=== PATIENT | female | born 1990 | race Caucasian/White ===

== ENCOUNTER → 2017-02-04 17:23 | Outpatient (CLI) | payer MEDICAID ==
[2015-12-02 14:46] VITALS: BMI 31.0
[~2017-02-04 17:23] MED LIST: FERROUS SULFAT325 MG PO; K-DUR20 MEQ PO; PERCOCET 5-3251 TAB PO; PRENATAL COMPLE1 TAB PO
[2017-02-04 19:07] LABS: APPEARANCE CLEAR (CLEAR); BILIRUBIN NEGATIVE (NEGATIVE); COLOR YELLOW (YELLOW); GLUCOSE NEGATIVE (NEGATIVE); KETONE NEGATIVE (NEGATIVE); NITRITE NEGATIVE (NEGATIVE); PROTEIN NEGATIVE (NEGATIVE); SPECIFIC GRAVITY 1.005 (1.005-1.020); UROBILINOGEN NORMAL (NORMAL)
[2017-02-04 19:08] LABS: BACTERIA MODERATE /hpf (NONE SEEN); EPITHELIAL CELLS 0-5 /hpf (0-5); LEUKOCYTE ESTERASE TRACE (NEGATIVE); RED CELLS - URINE NONE SEEN /hpf (0-5); WHITE CELLS - URINE 0-5 /hpf (0-5)
== END | disposition home or self-care (01) ==
LOC: D.LDO 17:23
PROVIDERS: Obstetrics & Gynecology
DX: O36.8130 Decreased fetal movements, third trimester, not applicable or unspecified (principal); Z3A.37 37 weeks gestation of pregnancy

== ENCOUNTER 2017-02-20 04:30 | Inpatient (IN) | payer MEDICAID ==
[2017-02-19 15:40] LABS: BASOPHILS 0 % (0-2); EOSINOPHILS 0.5 % (0-7); HEMATOCRIT 36.7 % (36.0-48.0); HEMOGLOBIN 12.3 g/dL (12-16); IMMATURE GRANULOCYTES 0.4 % (0-5); LYMPHOCYTES 16.9 % (15-50); MCH 29.1 pg (26.0-34.0); MCHC 33.5 g/dL (31.0-37.0); MEAN PLATELET VOLUME 13.8 fL (7.4-10.4); MONOCYTES 6.7 % (2-11); NEUTROPHILS 75.5 % (40-80); PLATELET COUNT 98 10x3/uL (130-400); RBC 4.22 10x6/uL (4.00-5.40); WBC 7.5 10x3/uL (4.8-10.8)
[2017-02-19 16:35] LABS: PLATELET ESTIMATE DECREASED
[~2017-02-20] VITALS: Ht 162.6 cm; Wt 84.1 kg
[2017-02-20 04:58] VITALS: BP 114/66; Ht 162.6 cm; Wt 84.1 kg
[2017-02-20 06:35] LABS: HEMATOCRIT 37.3 % (36.0-48.0); HEMOGLOBIN 12.5 g/dL (12-16); MCH 29.3 pg (26.0-34.0); MCHC 33.5 g/dL (31.0-37.0); MCV 87.4 fL (80.0-100.0); MEAN PLATELET VOLUME 13.5 fL (7.4-10.4); RBC 4.27 10x6/uL (4.00-5.40); WBC 8.7 10x3/uL (4.8-10.8)
[2017-02-20 06:58] LABS: APPEARANCE HAZY (CLEAR); BILIRUBIN NEGATIVE (NEGATIVE); COLOR YELLOW (YELLOW); GLUCOSE NEGATIVE (NEGATIVE); KETONE NEGATIVE (NEGATIVE); LEUKOCYTE ESTERASE 1+ (NEGATIVE); NITRITE NEGATIVE (NEGATIVE); PROTEIN NEGATIVE (NEGATIVE); SPECIFIC GRAVITY 1.005 (1.005-1.020); UROBILINOGEN NORMAL (NORMAL)
[2017-02-20 06:59] LABS: BACTERIA MODERATE /hpf (NONE SEEN); RED CELLS - URINE NONE SEEN /hpf (0-5)
--- NOTE | 2017-02-20 19:33 | NUR ---
PT AMBULATORY TO ROOM FOR CONTINUED POST CARE OF THIS POST NVD. STEADY GAIT NOTED TO ROOM. PT ORIENTED TO ROOM, BATHROOM, BEDRAILS, AND CL USE. VERBALIZED UNDERSTANDING. BED PLACED IN LOW POSITION WITH UPPER SIDE RAILS RAISED X2. CL AND PHONE PLACE IN PT REACH. INFANT IN ROOM WITH MOTHER AND S/O AT THIS TIME. RN INSTRUCTED ON USE OF PHONE TO CONTACT NBN. PT STATES THAT PAIN REMAINS A 4/10 TO LOWER BACK AT THIS TIME, "BUT IT'S SEEMS TO BE GETTING BETTER WITH WALKING." PT REQUESTS THAT SHIFT ASSESSMENT BE COMPLETED AFTER SHE HAS BONDING TIME WITH HER INFANT. VSS AT THIS TIME. FUNDUS FIRM U2 WITH SMALL AMT PRACHI BULLARD. WILL CONT TO MONITOR AND ASSIST PRN.
--- NOTE | 2017-02-20 20:08 | NUR ---
PAIN REASSESSMENT COMPLETED. PAIN 3/10, DENIES NEED FOR ADDITIONAL INTERVENTION. PT SITTING UP IN ROCKING CHAIR PREPARING TO BREAST FEED . DENIES NEED AT THIS TIME. S/O AT BEDSIDE ATTENTIVE AND SUPPORTIVE OF PT. WILL CONT TO MONITOR AND ASSIST PRN.
--- NOTE | 2017-02-20 21:09 | NUR ---
ROUNDS MADE. PT VISITING WITH VISITORS AT THIS TIME. REQUEST THAT RN CHECK BACK FOR ASSESSMENT, STATES THAT HER VISITORS WILL BE LEAVING SOON. INSTRUCTED TO USE CL WHEN VISITORS LEAVE OR FOR ANY NEEDS. VERBALIZES UNDERSTANDING. SODA GIVEN PER REQUEST. STATES THAT PAIN TO LOWER BACK AND ABD CRAMPING IS INCREASING RATING 5/10 AT THIS TIME. EDUCATED ON ORDERED PAIN MEDICATIONS, VERBALIZES UNDERSTANDING, STATES THAT SHE WILL NOTIFY RN WHEN SHE NEEDS MEDS. BED REMAINS IN LOW POSITION WITH UPPER SIDE RAILS RAISED X2. CL AND PHONE WITHIN PT REACH.
[2017-02-20 21:27] VITALS: BP 106/56
--- NOTE | 2017-02-20 21:38 | NUR ---
PT CALLS VIA CL. VISITORS OUT OF ROOM AT THIS TIME. SHIFT ASSESSMENT COMPLETED. VSS. FUNDUS FIRM, U2 WITH SMALL AMT RUBRA LOCHIA TO PERIPAD, NOT CLOTS. PT STATES THAT SHE IS VOIDING WITHOUT DIFFICULTY. PAIN 6/10 TO LOWER BACK AND ABD CRAMPING. PT REQUESTS DEMEROL 50 MG, STATING THE LAST TIME SHE TOOK 100 MG IT MADE HER "LOOPY AND DIZZY." EDUCATED ON DEMEROL USE, FREQUENCY, AND SIDE EFFECTS, VERBALIZED UNDERSTANDING, DENIES QUESTIONS AT THIS TIME. S/O REMAINS AT BEDSIDE. REINFORCED HANDING INFANT TO S/O IF SHE BECOMES DIZZY, VERBALIZED UNDERSTANDING. BOWEL SOUNDS PRESENT AND ACTIVE X4. SANDWICH TRAY AND ICE CREAM GIVEN PER REQUEST. DENIES ADDITIONAL NEEDS. BED IN LOW POSITION WITH UPPER SIDE RAILS RAISED X2. CL AND PHONE WITHIN REACH. WILL CONT TO MONITOR AND ASSIST PRN.
--- NOTE | 2017-02-20 22:24 | NUR ---
PAIN REASSESSMENT COMPLETED. PAIN 12/18. PT REQUESTS TO SHOWER AND PUT HER OWN CLOTHES ON. PT STATES THAT HER S/O WILL HELP HER IN THE SHOWER AND REMAIN WITH HER. INSTRUCTED ON CL USE IN BATHROOM, VERBALIZED UNDERSTANDING. WILL CONT TO MONITOR AND ASSIST PRN.
--- NOTE | 2017-02-20 22:48 | NUR ---
PT OUT OF SHOWER AND BACK TO BED. S/O REMAINS AT BEDSIDE. PT STATES THAT PAIN IS 2-3/10. DENIES NEEDS AT THIS TIME. IN CRIB AT BEDSIDE. CL AND PHONE WITHIN PT REACH. BED IN LOW POSITION WITH UPPER SIDE RAILS RAISED X2. WILL CONT TO MONITOR AND ASSIST PRN.
--- NOTE | 2017-02-21 00:03 | NUR ---
ROUNDS MADE. PT IN SEMI FOWLERS POSITION HOLDING AT THIS TIME. REQUESTS THAT RN TAKE TO NBN FOR V/S AND WEIGHT AND BRING BACK TO ROOM ONCE NBN RN IS FINISHED WITH V/S AND WT. DENIES PAIN AT THIS TIME. DENIES NEEDS. S/O REMAINS AT BEDSIDE SLEEPING AT THIS TIME. BED IN LOW POSITION WITH UPPER SIDE RAILS RAISED X2. CL AND PHONE WITHIN REACH. WILL CONT TO MONITOR AND ASSIST PRN
--- NOTE | 2017-02-21 02:08 | NUR ---
ROUNDS MADE. PT RESTING QUIETLY WITH EYES CLOSED. RESPIRATIONS REGULAR, NO S/S OF DISTRESS NOTED. BED IN LOW POSITION WITH UPPER SIDE RAILS RAISED X2. CL AND PHONE WITHIN REACH. S/O REMAINS AT BEDSIDE SLEEPING ON COUCH. WILL CONT TO MONITOR AND ASSIST PRN.
--- NOTE | 2017-02-21 04:01 | NUR ---
ROUNDS MADE. PT RESTING WITH EYES CLOSED. RESPIRATIONS REGULAR, NO S/S OF DISTRESS NOTED. S/O REMAINS AT BEDSIDE ON COUCH SLEEPING. BED REMAINS IN LOW POSITION WITH UPPER SIDE RAILS RAISED X2. CL AND PHONE WITHIN PT REACH. WILL CONT TO MONITOR AND ASSIST PRN.
--- NOTE | 2017-02-21 04:13 | NUR ---
PT CALLS VIA CL. REQUEST BOTTLE AND NIPPLE. TAKEN TO PT PER REQUEST. PT SITTING IN ROCKING CHAIR UPON RN ENTERING ROOM, PREPARING TO FEED INFANT. PAIN 2-3/10, LOWER BACK ACHE AND "SOME" ABD CRAMPING. DENIES NEED FOR INTERVENTION. ICE WATER GIVEN. WILL CONT TO MONITOR AND ASSIST PRN.
--- NOTE | 2017-02-21 04:25 | NUR ---
PT CL VIA CL, REPORTS THAT PAIN IS INCREASING SINCE BEING UP. PAIN 5-6/10 WITH MORE CRAMPING BEING A LITTLE WORSE AND BACK ACHING. REQUESTS 50 MG OF DEMEROL, GIVEN PER ORDER AND REQUEST. S/O SITTING UP ON COUCH AND REPORTS THAT IF PT BECOMES DIZZY/LIGHTHEADED/DROWSY HE WILL TAKE . EXPLAINED TO PT THAT IT IS NOT UNCOMMON FOR CRAMPING TO INCREASE WHEN HOLDING , VERBALIZED UNDERSTANDING. DENIES ADDITIONAL NEEDS AT THIS TIME. CL PLACED WITHIN PT REACH. WILL CONT TO MONITOR AND ASSIST PRN.
--- NOTE | 2017-02-21 05:03 | NUR ---
PAIN REASSESSMENT COMPLETED. PAIN 11/17. DENIES NEEDS AT THIS TIME. PT BACK IN BED. S/O BONDING WITH AT THIS TIME. BED IN LOW POSITION WITH UPPER SIDE RAILS RAISED X2. CL AND PHONE WITHIN PT REACH. WILL CONT TO MONITOR AND ASSIST PRN.
[2017-02-21 05:55] LABS: BASOPHILS 0.1 % (0-2); EOSINOPHILS 0.8 % (0-7); HEMATOCRIT 35.4 % (36.0-48.0); HEMOGLOBIN 11.7 g/dL (12-16); IMMATURE GRANULOCYTES 0.3 % (0-5); LYMPHOCYTES 21.8 % (15-50); MCH 29.5 pg (26.0-34.0); MCHC 33.1 g/dL (31.0-37.0); MCV 89.2 fL (80.0-100.0); MEAN PLATELET VOLUME 13.2 fL (7.4-10.4); MONOCYTES 6.4 % (2-11); NEUTROPHILS 70.6 % (40-80); PLATELET COUNT 92 10x3/uL (130-400); RBC 3.97 10x6/uL (4.00-5.40); RDW 13.9 % (11.5-14.5); WBC 8.6 10x3/uL (4.8-10.8)
--- NOTE | 2017-02-21 06:03 | NUR ---
ROUNDS MADE. PT RESTING WITH EYES CLOSED. RESPIRATIONS REGULAR, NO S/S OF DISTRESS NOTED. IN CRIB AT BEDSIDE. S/O WATCHING TV. BED REMAINS IN LOW POSITION WITH UPPER SIDE RAILS RAISED X2. CL AND PHONE WITHIN REACH. WILL CONT TO MONITOR AND ASSIST PRN.
[2017-02-21 06:14] LABS: RAPID PLASMA REAGIN Non Reactive (Non Reactive)
--- NOTE | 2017-02-21 07:21 | OP ---
PATIENT NAME: TRAE POSADAS MEDICAL RECORD: [id number] :91 LOCATION:[facility] ADMISSION DATE:02/20/17 SURGEON: RIVKA FREED MD DATE OF OPERATION: 02/20/2017 PREOPERATIVE DIAGNOSIS: A 39.6 week gestation, desires induction of labor. POSTOPERATIVE DIAGNOSIS: A 39.6 week gestation, desires induction of labor. PROCEDURE: Vaginal delivery. DELIVERY NOTE: Spontaneous vaginal delivery of female infant weighing 5 pounds 8 ounces, 9 and 9 Apgars, no episiotomy, no laceration, spontaneous delivery of intact-appearing placenta. ESTIMATED BLOOD LOSS: 400 cc. COMPLICATIONS OF DELIVERY: None. TRANSINT:[id number] Voice Confirmation ID: [id number] DOCUMENT ID: [id number] RIVKA FREED MD at 0721 CC: [id number] DICTATION DATE: 02/20/17 1403 STATION COOK: 02/20/17 2338 ADM IN [place] [address] [place] [address]
--- NOTE | 2017-02-21 08:00 | NUR ---
PT IN HIGH FOWLERS POSITION FINISHING BREAKFAST TRAY. PHYSICAL ASSESSMENT DONE. SEE SHIFT ASSESS. SALINE LOCK IN RFA DISCONTINUED WITH CATH TIP INTACT. BOWELS SOUNDS HYPOACTIVE IN LOWER QUADRANTS. PT REPORT PASSING GAS SINCE DELIVERY. FUNDUS FIRM U/1. LIGHT RUBRA LOCHIA NOTED ON PAD. PT DENIES PASSING CLOTS THROUGHOUT THE NIGHT. PT RATES PAIN 3-4/10 AND DENIES NEED FOR PAIN MEDICATION AT THIS TIME. INFANT IN ROOM AND UP TO NURSING RN ARMS FOR BOTTLE FEEDING EDUCATION TO BOTH PARENTS.
[2017-02-21 08:10] VITALS: BP 111/64
--- NOTE | 2017-02-21 09:00 | NUR ---
PT AMBULATING IN HALLWAY WITH FOB. DENIES PAIN OR NEEDS
--- NOTE | 2017-02-21 09:29 | NUR ---
DR OLIVEIRA PROVIDED. PT AMBULATING IN ROOM AND DENIES PAIN OR FURTHER NEEDS
--- NOTE | 2017-02-21 11:15 | NUR ---
ROUNDS MADE PER THIS RN. PT JUST FINISHING FEEDING . DENIES PAIN OR NEEDS AT THISTIME. REPORTED TO Sourav LYNNE RN
--- NOTE | 2017-02-21 12:40 | NUR ---
PT IN HIGH FOWLERS POSITION. PT DENIES NEEDS AT THIS TIME.
--- NOTE | 2017-02-21 14:30 | NUR ---
PT LAYING IN BED WITH FOB. IN CRIB RESTING QUIETLY. PT RATES PAIN 7/10 IN BACK AND PERINEUM AND REQUESTS PAIN MEDICINE AT THIS TIME.
--- NOTE | 2017-02-21 14:54 | NUR ---
DEMEROL 50MG GIVEN PO. PT DENIES FURTHER NEEDS AT THIS TIME.
--- NOTE | 2017-02-21 15:45 | NUR ---
PT IN LEFT LATERAL POSITION RESTING WITH EYES CLOSED. RESP. EVEN AND UNLABORED. FOB STATES, "SHE IS ASLEEP". DENIES NEEDS.
[2017-02-21 16:30] VITALS: BP 109/70
--- NOTE | 2017-02-21 16:30 | NUR ---
PT SITTING IN HIGH FOWLERS POSITION FEEDING INFANT. AFTER FEED, VS OBTAINED AND STABLE. FUNDUS FIRM U/1. LIGHT RUBRA LOCHIA NOTED ON CRISTIANO PAD, PT REPORTS CHANGING PAD 1 HR PRIOR TO EXAM AND DENIES PASSING CLOTS TODAY. PT RATES PAIN 3/10 AND DENIES NEEDS AT THIS TIME. FOB CHANGING DIAPER.
--- NOTE | 2017-02-21 18:15 | NUR ---
REPORT OF PT DESIRE TO DC HOME WITH CALLED TO DR SANCHEZ. RECIEVED ORDER TO DISCHARGE HOME WITH .
--- NOTE | 2017-02-21 18:25 | NUR ---
PT UP IN ROCKER. PT DENIES PAIN AND REQUEST DR OLIVEIRA, DRINK PROVIDED. PT STATES THAT HAS BEEN DISCHARGED AND THAT THEIR RIDE WILL BE HERE IN ONE HOUR. WILL BEGIN DC PAPERWORK.
[2017-02-21] MEDS ORDERED: IBUPROFEN600 MG PO (19:07)
== END 2017-02-21 20:03 | disposition home or self-care (01) | DRG 775 ==
LOC: D.LD 04:30
PROVIDERS: ADMIT Obstetrics & Gynecology
PROC: 10E0XZZ Delivery of Products of Conception, External Approach (ICD-10-PCS; principal; 2017-02-20)
DX: O99.12 Other diseases of the blood and blood-forming organs and certain disorders involving the immune mechanism complicating childbirth (principal); Z3A.39 39 weeks gestation of pregnancy; Z37.0 Single live birth; O99.334 Smoking (tobacco) complicating childbirth

== ENCOUNTER 2017-09-18 13:22 | Emergency (ER) | payer MEDICAID ==
[2017-02-20 04:58] VITALS: BMI 31.9
[~2017-09-18 13:22] MED LIST changes: +IBUPROFEN600 MG PO
[2017-09-18 14:38] LABS: BASOPHILS 0 % (0-2); EOSINOPHILS 0.7 % (0-7); HEMATOCRIT 39.2 % (36.0-48.0); HEMOGLOBIN 13.2 g/dL (12-16); IMMATURE GRANULOCYTES 0.2 % (0-5); LYMPHOCYTES 24.9 % (15-50); MCH 28.9 pg (26.0-34.0); MCHC 33.7 g/dL (31.0-37.0); MEAN PLATELET VOLUME 12.1 fL (7.4-10.4); MONOCYTES 7.7 % (2-11); NEUTROPHILS 66.5 % (40-80); PLATELET COUNT 110 10x3/uL (130-400); RBC 4.56 10x6/uL (4.00-5.40); RDW 13.4 % (11.5-14.5); WBC 5.8 10x3/uL (4.8-10.8)
[2017-09-18 15:00] LABS: HCG SERUM POSITIVE (NEGATIVE)
[2017-09-18 15:03] LABS: ALBUMIN 3.7 g/dL (3.4-5.0); ALKALINE PHOSPHATASE 105 U/L (46-116); ALT (SGPT) 73 U/L (10-68); BILIRUBIN - TOTAL 0.24 mg/dL (0.2-1.3); CALC OSMOLALITY 273 mosm/kg (275-300); CALCIUM 9.6 mg/dL (8.5-10.1); CARBON DIOXIDE 24.1 mmol/L (21.0-32.0); CHLORIDE - SERUM 104 mmol/L (98-107); CREATININE - SERUM 0.8 mg/dL (0.6-1.3); GLUCOSE 98 mg/dL (74-106); POTASSIUM - SERUM 3.9 mmol/L (3.5-5.1); PROTEIN - SERUM 6.9 g/dL (6.4-8.2); SODIUM 138 mmol/L (136-145); UREA NITROGEN 6 mg/dL (7-18); eGFR NON AFRICAN AMERICAN > 90 mL/min (90-120)
[2017-09-18 15:29] LABS: HCG - QUANTITATIVE (MATERNAL) 4625 mIU/mL
[2017-09-18 21:04] VITALS: BP 111/64
[2017-09-18] MEDS ORDERED: POTASSIUM99 M1 PO (22:58)
[2017-09-18] MEDS ORDERED: PRENATAL COMPLE1 TAB PO (22:58)
== END 2017-09-18 19:59 | disposition home or self-care (01) ==
LOC: D.ER 13:22
PROVIDERS: Family Medicine
DX: O03.9 Complete or unspecified spontaneous abortion without complication (principal); Z3A.01 Less than 8 weeks gestation of pregnancy; F17.200 Nicotine dependence, unspecified, uncomplicated

== ENCOUNTER 2017-09-18 22:03 | Day surgery (SDC) | payer MEDICAID ==
[2017-09-18] VITALS (7 sets, daily range): BP systolic 105–112; BP diastolic 63–69; Ht 162.6 cm; Wt 81.8 kg
[~2017-09-18] VITALS: Ht 162.6 cm; Wt 81.8 kg
--- NOTE | ~2017-09-18 | OP ---
PATIENT NAME: TRAE POSADAS MEDICAL RECORD: [id number] :91 LOCATION:[facility] ADMISSION DATE: SURGEON: ANIL CARCAMO MD DATE OF OPERATION: 09/18/2017 PREOPERATIVE DIAGNOSIS: Inevitable . POSTOPERATIVE DIAGNOSIS: Inevitable . PROCEDURE: Dilation and evacuation with D&C. SURGEON: Anil Carcamo MD FINISHER MACHINE: Gato Maurice. ANESTHETICS: General. FINDINGS: Cervical os is open. Bimanual exam is approximately 8-9 week size. Moderate amounts of products of conception returned at the time of suction D&E. PATHOLOGY: Products of conception. ESTIMATED BLOOD LOSS: Less than or equal to 50 cc. FLUIDS: 300 cc of lactated Ringer's. URINE OUTPUT: Quantity sufficient voided prior to the procedure. COMPLICATIONS: None. SPECIMENS: None. INDICATIONS: The patient is a 26-year-old female who presents to the Emergency Room with heavy vaginal bleeding. Upon assessment, she is found to have significant bleeding with a dilated cervix. The patient is consented for D&E. DESCRIPTION OF PROCEDURE: After informed consent was assured, the patient was taken to the operating room, anesthetic is obtained. The patient was placed in [facility] and prepped and draped. A speculum was introduced. The cervix is grasped and easily accommodates an 18 Hanks dilator. The cervix is now further dilated to 20 Hanks dilator and 8 straight suction curette is now passed into the uterus. The suction curette is passed to the fundus and suction activated. Moderate amount of products of conception returned. A sharp curettage was now performed with a #2 curette. The vacuum device removed all remaining clot and debris. Single tooth tenaculum which was used to steady the cervix throughout the case is removed and a ring forceps was placed on the puncture sites until the patient is brought down from the stirrups. Sponge, lap, and needle counts correct times 2. TRANSINT:[id number] Voice Confirmation ID: [id number] DOCUMENT ID: [id number] OPERATIVE REPORT [id number] CUAUHTEMOCTRAE ANIL CARCAMO MD at 0808 CC: [id number] DICTATION DATE: 09/18/172034 [employer] OPERATOR: 09/19/17 0008 [facility] 09/19/17 [facility] [address] [facility] [place] [address]
[2017-09-18] MEDS ORDERED: POTASSIUM99 M1 PO (22:58)
[2017-09-18] MEDS ORDERED: PRENATAL COMPLE1 TAB PO (22:58)
[2017-09-19] VITALS: BP 107/63
[2017-09-19 08:30] VITALS: BP 114/61
== END 2017-09-19 11:30 | disposition home or self-care (01) ==
LOC: D.LDO 22:03 → EDSTATUS 22:38 → D.WS 22:39 → D.LDO 09-19 11:30
DX: O03.9 Complete or unspecified spontaneous abortion without complication (principal); Z01.812 Encounter for preprocedural laboratory examination

== ENCOUNTER 2018-11-06 13:37 | Emergency (ER) | payer MEDICAID ==
[~2018-11-06] VITALS: Ht 162.6 cm; Wt 84.8 kg
[~2018-11-06 13:37] MED LIST changes: +POTASSIUM99 M1 PO
[2018-11-06 13:43] VITALS: Ht 162.6 cm; Wt 84.8 kg
[2018-11-06 14:08] LABS: BASOPHILS 0.2 % (0-2); EOSINOPHILS 0.8 % (0-7); HEMATOCRIT 40.8 % (36.0-48.0); HEMOGLOBIN 13.6 g/dL (12-16); IMMATURE GRANULOCYTES 0.2 % (0-5); LYMPHOCYTES 30.9 % (15-50); MCH 28.9 pg (26.0-34.0); MCHC 33.3 g/dL (31.0-37.0); MCV 86.6 fL (80.0-100.0); MEAN PLATELET VOLUME 13.3 fL (7.4-10.4); MONOCYTES 6.4 % (2-11); NEUTROPHILS 61.5 % (40-80); RBC 4.71 10x6/uL (4.00-5.40); RDW 13.6 % (11.5-14.5); WBC 6.2 10x3/uL (4.8-10.8)
[2018-11-06 14:28] LABS: PLATELET COUNT 142 10x3/uL (130-400)
[2018-11-06 14:55] LABS: COLOR YELLOW (YELLOW)
[2018-11-06 14:56] LABS: APPEARANCE CLEAR (CLEAR); BILIRUBIN NEGATIVE (NEGATIVE); GLUCOSE NEGATIVE (NEGATIVE); KETONE NEGATIVE (NEGATIVE); NITRITE NEGATIVE (NEGATIVE); PROTEIN NEGATIVE (NEGATIVE); SPECIFIC GRAVITY 1.005 (1.005-1.020); UROBILINOGEN NORMAL (NORMAL)
[2018-11-06 14:56] LABS: ALBUMIN 3.7 g/dL (3.4-5.0); ALKALINE PHOSPHATASE 86 U/L (46-116); ALT (SGPT) 42 U/L (10-68); BILIRUBIN - TOTAL 0.53 mg/dL (0.2-1.3); CALC OSMOLALITY 275 mosm/kg (275-300); CALCIUM 8.6 mg/dL (8.5-10.1); CARBON DIOXIDE 23.3 mmol/L (21.0-32.0); CHLORIDE - SERUM 106 mmol/L (98-107); CREATININE - SERUM 0.7 mg/dL (0.6-1.3); GLUCOSE 94 mg/dL (74-106); POTASSIUM - SERUM 3.8 mmol/L (3.5-5.1); PROTEIN - SERUM 7.1 g/dL (6.4-8.2); SODIUM 140 mmol/L (136-145); UREA NITROGEN 5 mg/dL (7-18); eGFR NON AFRICAN AMERICAN > 90 mL/min (90-120)
[2018-11-06 14:57] LABS: BACTERIA MODERATE /hpf (NONE SEEN); EPITHELIAL CELLS OCC /hpf (0-5); RED CELLS - URINE 0-5 /hpf (0-5); WHITE CELLS - URINE OCC /hpf (0-5)
[2018-11-06 15:02] LABS: HCG - QUANTITATIVE (MATERNAL) 738 mIU/mL
[2018-11-06] MEDS ORDERED: MACROBID100 MG PO (18:49)
[2018-11-06 19:07] VITALS: BP 127/78
== END 2018-11-06 19:07 | disposition home or self-care (01) ==
LOC: D.ER 13:37
PROVIDERS: Family Medicine
DX: O20.9 Hemorrhage in early pregnancy, unspecified (principal); Z3A.01 Less than 8 weeks gestation of pregnancy; O23.41 Unspecified infection of urinary tract in pregnancy, first trimester

== ENCOUNTER → 2018-11-08 17:22 | Outpatient (CLI) | payer MEDICAID ==
[~2018-11-08 17:22] MED LIST changes: +MACROBID100 MG PO
[2018-11-08 18:15] LABS: BASOPHILS 0 % (0-2); HEMATOCRIT 40.2 % (36.0-48.0); HEMOGLOBIN 13.3 g/dL (12-16); IMMATURE GRANULOCYTES 0.2 % (0-5); LYMPHOCYTES 35.2 % (15-50); MCHC 33.1 g/dL (31.0-37.0); MCV 87.6 fL (80.0-100.0); MEAN PLATELET VOLUME 12.8 fL (7.4-10.4); MONOCYTES 8.5 % (2-11); NEUTROPHILS 55.1 % (40-80); PLATELET COUNT 116 10x3/uL (130-400); RBC 4.59 10x6/uL (4.00-5.40); RDW 13.4 % (11.5-14.5)
== END | disposition home or self-care (01) ==
LOC: D.LABREF 17:22
PROVIDERS: ATTEND Nurse Practitioner Family
DX: Z33.1 Pregnant state, incidental (principal)

== ENCOUNTER → 2019-06-02 11:34 | Outpatient (CLI) | payer MEDICAID | END | disposition home or self-care (01) | LOC: D.US 11:34 | PROVIDERS: ATTEND Student in an Organized Health Care Education/Training Program | DX: N63.10 Unspecified lump in the right breast, unspecified quadrant (principal) ==

== ENCOUNTER → 2019-06-13 12:00 | Outpatient (CLI) | payer MEDICAID | END | disposition home or self-care (01) | LOC: D.US 12:00 | PROVIDERS: ATTEND Student in an Organized Health Care Education/Training Program | DX: N63.13 Unspecified lump in the right breast, lower outer quadrant (principal) ==

== ENCOUNTER 2020-03-29 14:55 | Outpatient (CLI) | payer OTHER | END 2020-03-29 17:15 | disposition home or self-care (01) | LOC: D.LDO 14:55 | PROVIDERS: ATTEND Student in an Organized Health Care Education/Training Program | DX: O30.90 Multiple gestation, unspecified, unspecified trimester (principal); Z3A.00 Weeks of gestation of pregnancy not specified ==

== ENCOUNTER 2020-04-05 12:30 | Outpatient (CLI) | payer OTHER | END 2020-04-05 13:58 | disposition home or self-care (01) | LOC: D.LDO 12:30 | PROVIDERS: ATTEND Student in an Organized Health Care Education/Training Program | DX: O30.93 Multiple gestation, unspecified, third trimester (principal); Z3A.34 34 weeks gestation of pregnancy ==

== ENCOUNTER 2020-04-12 12:18 | Outpatient (CLI) | payer OTHER ==
[2020-04-12] MEDS ORDERED: ACETAMINOPHEN325 MG PO (12:40)
[2020-04-12] MEDS ORDERED: TUMS X-STR300 MG PO (12:40)
== END 2020-04-12 14:00 | disposition home or self-care (01) ==
LOC: D.LDO 12:18
PROVIDERS: ATTEND Student in an Organized Health Care Education/Training Program
DX: O30.90 Multiple gestation, unspecified, unspecified trimester (principal); Z3A.00 Weeks of gestation of pregnancy not specified

== ENCOUNTER 2020-04-13 12:40 | Outpatient (CLI) | payer OTHER ==
[~2020-04-13 12:40] MED LIST changes: +ACETAMINOPHEN325 MG PO; +TUMS X-STR300 MG PO
== END 2020-04-13 14:20 | disposition home or self-care (01) ==
LOC: D.LDO 12:40
PROVIDERS: ATTEND Student in an Organized Health Care Education/Training Program
DX: O30.003 Twin pregnancy, unspecified number of placenta and unspecified number of amniotic sacs, third trimester (principal); Z3A.35 35 weeks gestation of pregnancy

== ENCOUNTER 2020-04-15 11:36 | Inpatient (IN) | payer OTHER ==
[~2020-04-15] VITALS: Ht 162.6 cm; Wt 87.1 kg
[2020-04-15 17:45] VITALS: BP 114/60; Ht 162.6 cm; Wt 87.1 kg
[2020-04-15 19:19] LABS: HEMATOCRIT 31.4 % (36.0-48.0); HEMOGLOBIN 10.2 g/dL (12-16); MCH 31.2 pg (26.0-34.0); MCHC 32.5 g/dL (31.0-37.0); MEAN PLATELET VOLUME 11.4 fL (7.4-10.4); RBC 3.27 10x6/uL (4.00-5.40); RDW 17.5 % (11.5-14.5); WBC 8.9 10x3/uL (4.8-10.8)
[2020-04-15 19:40] LABS: UDS - AMPHET NEGATIVE QUAL (NEGATIVE); UDS - BARB NEGATIVE QUAL (NEGATIVE); UDS - BENZO NEGATIVE QUAL (NEGATIVE); UDS - COCAINE NEGATIVE QUAL (NEGATIVE); UDS - OPIATE NEGATIVE QUAL (NEGATIVE); UDS - PCP NEGATIVE QUAL (NEGATIVE); UDS - THC NEGATIVE QUAL (NEGATIVE)
--- NOTE | 2020-04-16 03:19 | NUR ---
RN TO PT BEDSIDE, PT AND PT'S MOTHER FEEDING NEWBORNS, PT DENIES ANY NEEDS AT THIS TIME, BED IN LOWEST POSITION, SIDE RAILS UPX2, CALL LIGHT IN REACH.
--- NOTE | 2020-04-16 03:51 | NUR ---
RN TO PT BEDSIDE, FUNDUS IS FIRM, MIDLINE, 2 BELOW, SCANT RUBRA LOCHIA NOTED, NO CLOTS SEEN. PT DENIES ANY NEEDS AT THIS TIME, INFANTS IN CRIBS AT BEDSIDE.
[2020-04-16 06:15] VITALS: BP 121/72
--- NOTE | 2020-04-16 06:15 | NUR ---
RN TO PT BEDSIDE FOR ROUNDING, PT BONDING WITH BGB AT THIS TIME. VSS. FUNDUS FIRM, MIDLINE, 2 BELOW, SCANT RUBRA LOCHIA. NO CLOTS.
[2020-04-16 06:54] LABS: BASOPHILS 0.1 % (0-2); EOSINOPHILS 0.3 % (0-7); HEMATOCRIT 28.3 % (36.0-48.0); HEMOGLOBIN 9.3 g/dL (12-16); IMMATURE GRANULOCYTES 1.9 % (0-5); LYMPHOCYTES 16.4 % (15-50); MCH 31.3 pg (26.0-34.0); MCHC 32.9 g/dL (31.0-37.0); MCV 95.3 fL (80.0-100.0); MEAN PLATELET VOLUME 11.8 fL (7.4-10.4); MONOCYTES 5.1 % (2-11); NEUTROPHILS 76.2 % (40-80); PLATELET COUNT 156 10x3/uL (130-400); RBC 2.97 10x6/uL (4.00-5.40); RDW 17.4 % (11.5-14.5)
[2020-04-16 07:15] VITALS: BP 116/63
--- NOTE | 2020-04-16 07:29 | NUR ---
PT AWAKE AND ALERT, C/O BACK PAIN THAT IS A CONSTANT BURNING, NO SWELLING OR BRUISING NOTED. FUNDUS FIRM AT U/1 MIDLINE AND NO CLOTS NOTED, LIGHT BLEEDING NOTED TO CRISTIANO PAD. RATES THIS PAIN AT 6-7/10, MOTRIN GIVEN SCANNED MEDITECH. WARM BLANKET ALSO PROVIDED AND PLACED TO BACK TO AID IN PAIN CONTROL. SALINE LOCK TO RIGHT FOREARM FLUSHED EASILY WITH 5ML NS. BOTH INFANTS AT BEDSIDE IN SEPERATE CRIBS, PT MOTHER IS ALSO PRESENT, SIDE RAILS UP X 2 WITH CALL LIGHT IN REACH.
--- NOTE | 2020-04-16 08:15 | NUR ---
PAIN REASSESSMENT COMPLETED.
--- NOTE | 2020-04-16 09:45 | NUR ---
IV COVERED, TOWELS PLACED IN BATHROOM AND PT STATES UNDERSTANDING OF EMERGENCY CALL LIGHT IN BATHROOM. PT UP TO SHOWER. BED LINENS CHANGED AT THIS TIME.
--- NOTE | 2020-04-16 10:40 | NUR ---
PT CONTINUES TO COMPLAIN OF BACK PAIN AND REFUSES TO LAY ON HER BACK AT ALL. KPAD TO BEDSIDE AND PT ABLE TO POSITION SELF TO RECEIVE COMFORT FROM THIS. LARGE CUP OF ICE WITH COLA. INFANTS REMAIN IN CRIB AT BEDSIDE. CALL LIGHT IN REACH.
--- NOTE | 2020-04-16 13:10 | NUR ---
REPORT RCVD FROM Dulce BALL RN. PT SITTING UP IN BED WITH C/O BACK PAIN 04/19 DUE TO EPIDURAL SITE. CALL PLACED TO ANESTHESIA. DR XAVIER TO ASSESS PT.
--- NOTE | 2020-04-16 13:20 | NUR ---
DR XAVIER TO ROOM TO ASSESS EPIDURAL SITE. DR XAVIER DISCUSSED S/S OF POC WITH PT. NO NEW ORDERS.
--- NOTE | 2020-04-16 14:20 | NUR ---
PT RATES PAIN IN BACK 3/10 AT THIS TIME REPORTING THAT K PAD IS HELPING HER RELAX SOME. DENIES FURTHER NEEDS.
--- NOTE | 2020-04-16 15:30 | NUR ---
PT TRANSFERRED TO ROOM 1222. INFANTS TRANSPORTED VIA OPEN CRIB. PT ORIENTED TO ROOM AND BATHROOM. NO NEEDS VOICED.
--- NOTE | 2020-04-16 16:10 | NUR ---
PT OUT OF ROOM TO GO TO VENDING MACHINE.
--- NOTE | 2020-04-16 17:45 | NUR ---
ROUNDS MADE. PT SITTING UP IN BED WATCHING TELEVISION. DENIES PAIN OR NEEDS.
--- NOTE | 2020-04-16 18:23 | NUR ---
ROUNDS MADE. PT DENIES NEEDS OR CONCERNS.
[2020-04-16 20:13] VITALS: BP 114/77
--- NOTE | 2020-04-16 20:13 | NUR ---
ASSESSMENT PER FLOW SHEET, VS OBTAINED, PT C/O SALINE LOCK HURTING, REQUESTS IT TO BE TAKEN OUT, SALINE LOCK REMOVED, TIP INTACT, PRESSURE HELD, BANDAID APPLIED, FF, ML, U/2, SCANT BLEEDING NOTED WITH NO CLOTS, PT REPORTS FLATUS, BM TODAY AND VOIDING WITH NO DIFFICULTY, PT RATES BACK PAIN AT EPIDURAL SITE 02/17, ADM MOTRIN PO PER MD ORDERS, SEE EMAR, PT DENIES FURTHER NEEDS
--- NOTE | 2020-04-16 20:40 | NUR ---
PT AMB TO NSY, GAIT STEADY, TO WATCH INFANTS BATHS, PT'S MOM AT SIDE
--- NOTE | 2020-04-16 21:07 | NUR ---
PT BACK IN ROOM, REPORTS BACK PAIN STILL THE SAME, STATES "THE MOTRIN DOESN'T REALLY HELP THAT MUCH, THEY TOLD ME IT WILL SETTLE DOWN IN ABOUT 5-7 DAYS, BUT THE HEATING PAD DOES HELP A LOT", PT DENIES NEEDS AT THIS TIME, PT'S MOM AT BEDSIDE
--- NOTE | 2020-04-16 21:25 | NUR ---
PT'S MOM AT CERTIFIED PERSONAL TRAINER, REPORTS THAT PT WOULD LIKE TO HAVE A NICOTINE PATCH, THIS RN TO ROOM, PT REPORTS THAT SHE DIDN'T NEED IT THIS MORNING BUT WOULD LIKE TO HAVE IT NOW
--- NOTE | 2020-04-16 21:30 | NUR ---
PHARMACY NOTIFIED ABOUT PT WANTING NICOTINE PATCH NOW, PHARMACY RE-TIMED TO ADM AT NIGHT
--- NOTE | 2020-04-16 21:36 | NUR ---
NICOTINE PATCH APPLIED TO LEFT ARM, PT DENIES FURTHER NEEDS
--- NOTE | 2020-04-16 23:12 | NUR ---
PT SITTING UP IN BED, CHANGING ONE OF THE INFANTS DIAPER, PT DENIES NEEDS AT THIS TIME, PT'S MOM ASLEEP AT BEDSIDE
--- NOTE | 2020-04-17 00:09 | NUR ---
ROUNDS MADE, PT JUST GETTING BACK INTO BED, INFANTS SLEEPING IN OPEN CRIB CART AT BEDSIDE, PT DENIES NEEDS, PTS MOM ASLEEP AT BEDSIDE
--- NOTE | 2020-04-17 02:27 | NUR ---
PT BOTTLE FEEDING ONE OF THE INFANTS AT THIS TIME, PT REPORTS BACK PAIN MUCH BETTER, RATES IT A 3/10, STATES "I THINK IT'S BECAUSE I ACTUALLY GOT A COUPLE OF HOURS OF SLEEP", ADM [place] PER MD ORDERS, SEE EMAR, WITH FRESH H20, PT DENIES FURTHER NEEDS, PT'S MOM ASLEEP AT BEDSIDE
--- NOTE | 2020-04-17 04:06 | NUR ---
PT AWAKE, HOLDING ONE OF THE INFANTS, OTHER INFANT IN OPEN CRIB CART, PT DENIES NEEDS OR PAIN AT THIS TIME, PT'S MOM AWAKE AT BEDSIDE
--- NOTE | 2020-04-17 05:45 | NUR ---
PT RESTING WITH EYES CLOSED, RESP QUIET, NO DISTRESS NOTED, LEFT UNDISTURBED AT THIS TIME, INFANTS IN OPEN CRIB CART AND PT'S MOM ASLEEP AT BEDSIDE
[2020-04-17 06:10] LABS: RAPID PLASMA REAGIN Non Reactive (Non Reactive)
--- NOTE | 2020-04-17 06:23 | NUR ---
DR CARCAMO TO ROOM
--- NOTE | 2020-04-17 06:24 | NUR ---
DR CARCAMO OUT OF ROOM
[2020-04-17 08:06] VITALS: BP 120/61
--- NOTE | 2020-04-17 08:10 | NUR ---
ASSESSMENT DONE. SITTING UP IN BED-UP AND ABOUT IN ROOM. DENIES PAIN OR DISCOMFORT. INFANTS IN ROOM AND MOM PREPARING TO FEED. STATES THAT BLEEDING IS SMALL. NO REQUESTS. STATES VOIDING WITHOUT PROBLEMS.
--- NOTE | 2020-04-17 09:39 | NUR ---
SITTING ON SIDE OF BED. INFANTS IN CRIB. ICE GIVEN PER REQUEST. DENIES OTHER NEEDS.
--- NOTE | 2020-04-17 13:00 | NUR ---
ROOMING IN POLICY GIVEN TO PT- PT READS AND SIGNS- DENIES QUESTIONS.
--- NOTE | 2020-04-17 13:55 | NUR ---
DISCHARGE INST VERBAL AND WRITTEN GIVEN. NO SCRIPTS TO GIVE. PT INSTRUCTED THAT MAY TAKE TYLENOL OR MOTRIN ACCORDING TO LABEL FOR PAIN. AWHONN GUIDELINES GIVEN. SEE ALSO SIGNED SHEET FOR INFORMATION. PT HEALTH SUMMARY GIVEN. DENIES QUESTIONS.
--- NOTE | 2020-04-17 14:19 | NUR ---
STATES SHE IS READY FOR DISCHARGE. LINENS CHANGED - TOWELS PRIVIDED. ORIENTED ICE AREA. DENIES FURTHER QUESTION.
--- NOTE | 2020-04-17 14:24 | NUR ---
DISCHARGED TO ROOM IN WITH INFANTS.
== END 2020-04-17 14:24 | disposition home or self-care (01) | DRG 807 ==
LOC: D.LDO 11:36 → D.LD 17:56 → D.WS 04-16 13:30
PROVIDERS: ADMIT Student in an Organized Health Care Education/Training Program; ATTEND Student in an Organized Health Care Education/Training Program
PROC: 10E0XZZ Delivery of Products of Conception, External Approach (ICD-10-PCS; principal; 2020-04-15)
PROC: 10907ZC Drainage of Amniotic Fluid, Therapeutic from Products of Conception, Via Natural or Artificial Opening (ICD-10-PCS; 2020-04-15)
PROC: 3E033VJ Introduction of Other Hormone into Peripheral Vein, Percutaneous Approach (ICD-10-PCS; 2020-04-15)
DX: O77.9 Labor and delivery complicated by fetal stress, unspecified (principal); Z37.2 Twins, both liveborn; O36.8331 Maternal care for abnormalities of the fetal heart rate or rhythm, third trimester, fetus 1; O30.033 Twin pregnancy, monochorionic/diamniotic, third trimester; Z3A.35 35 weeks gestation of pregnancy; O36.5931 Maternal care for other known or suspected poor fetal growth, third trimester, fetus 1; O99.334 Smoking (tobacco) complicating childbirth; F17.200 Nicotine dependence, unspecified, uncomplicated